=== PATIENT | male | born 1940 | race Caucasian/White ===

== ENCOUNTER 2018-02-25 15:48 | Inpatient (IN) | payer MEDICARE ==
[~2018-02-25] VITALS: Ht 188 cm; Wt 93.0 kg
[~2018-02-25 15:48] MED LIST: ACAR25TA2 PO; ALLO300T2 PO; ASPI-1012 PO; BUME2TAB18 PO; CALC650T PO; CLOP75TA32 PO; CYCL10 PO; GLIM2TAB3 PO; HYDR-4060 PO; ISOS30TA6 PO; MAGN420T PO; METO50TA9 PO; NITR0.4T50 SL; RANI150T7 PO; ROSU40 PO; TRAM50TA4 PO; VALS40TA4 PO
[2018-02-25 16:12] LABS: EOSINOPHILS % (AUTO) 1.5 % (0.0-8.0); HEMATOCRIT 45.5 % (42-54); LYMPHOCYTES % (AUTO) 19.1 % (21.0-51.0); MEAN CORPUSCULAR HEMOGLOBIN 31.9 pg (27.0-33.0); MEAN CORPUSCULAR HGB CONC 33.3 g/dL (32.0-36.0); MEAN CORPUSCULAR VOLUME 95.6 fL (79-99); MONOCYTES % (AUTO) 8.3 % (3.0-13.0); NEUTROPHILS % (AUTO) 70.1 % (40.0-77.0); PLATELET COUNT (AUTO) 123 K/uL (130-400); RED BLOOD CELL COUNT(AUTO) 4.76 MIL/uL (4.50-6.20); RED CELL DISTRIBUTION WIDTH 14.8 % (11.0-15.5); WHITE BLOOD COUNT (AUTO) 6.9 K/uL (4.8-10.8)
[2018-02-25 16:27] LABS: CREATININE 1.9 mg/dL (0.5-1.5); POTASSIUM 4.1 mmol/L (3.5-5.1)
[2018-02-25 16:32] LABS: ALBUMIN 3.3 g/dL (3.5-5.0); BILIRUBIN,TOTAL 0.7 mg/dL (0.2-1.0); TOTAL PROTEIN, SERUM 6.3 g/dL (6.0-8.3)
[2018-02-25 16:36] LABS: INR 1.05 (0.85-1.15); PARTIAL THROMBOPLASTIN TIME 28.3 SEC (26.3-35.5)
[2018-02-25 17:52] LABS: AMPHET/METH SCREEN,URINE NEGATIVE (NEGATIVE); BARBITURATE SCREEN, URINE NEGATIVE (NEGATIVE); BENZODIAZEPINES SCREEN,URINE NEGATIVE (NEGATIVE); CANNABINOID SCREEN,URINE NEGATIVE (NEGATIVE); COCAINE SCREEN,URINE NEGATIVE (NEGATIVE); OPIATE SCREEN,URINE NEGATIVE (NEGATIVE); PHENCYCLIDINE SCREEN,URINE NEGATIVE (NEGATIVE)
[2018-02-25] MEDS ORDERED: SODIUM CHLORIDE 0.9% 1000ML 1,000 ML IV ONE (18:14)
[2018-02-25] MEDS ORDERED: DEXTROSE 50%-WATER 50 ML DISP.SYRIN IV PRN (19:30)
[2018-02-25] MEDS ORDERED: GLUCAGON 1MG KIT 1 MG ML IM PRN (19:30)
[2018-02-25 20:10] LABS: HEMOGLOBIN A1C 6.3 % (4.0-6.0)
[2018-02-25] MEDS: INSULIN HUMULIN R 100 UNIT/ML 3ML SQ SCH (21:00)
[2018-02-25 21:03] VITALS: BP 113/76
[2018-02-25 23:05] VITALS: BP 101/67
[2018-02-25] MEDS: SODIUM CHLORIDE 0.9% 1000ML 1,000 ML IV SCH (23:21)
[2018-02-25] MEDS ORDERED: ONDANSETRON HCL MDV 20ML 2 MG/ML VIAL IV PRN (23:30)
[2018-02-25] MEDS ORDERED: ACETAMINOPHEN 325 MG TAB PO PRN (23:30)
[2018-02-26 00:22] LABS: APPEARANCE,URINE Clear (CLEAR); BILIRUBIN,URINE Negative (NEGATIVE); COLOR,URINE Yellow (YELLOW); GLUCOSE, URINE (UA) Negative (NEGATIVE); KETONES,URINE Negative (NEGATIVE); LEUKOCYTE ESTERASE ,URINE Negative (NEGATIVE); NITRATE,URINE Negative (NEGATIVE); OCCULT BLOOD,URINE Negative (NEGATIVE); PROTEIN,URINE Trace (NEGATIVE)
[2018-02-26 03:37] VITALS: BP 100/70
[2018-02-26 04:13] LABS: BASOPHILS % (AUTO) 0.7 % (0.0-5.0); EOSINOPHILS % (AUTO) 3.6 % (0.0-8.0); HEMATOCRIT 41.1 % (42-54); LYMPHOCYTES % (AUTO) 24.7 % (21.0-51.0); MEAN CORPUSCULAR HEMOGLOBIN 31.6 pg (27.0-33.0); MEAN CORPUSCULAR HGB CONC 33.1 g/dL (32.0-36.0); MEAN CORPUSCULAR VOLUME 95.5 fL (79-99); MONOCYTES % (AUTO) 10.4 % (3.0-13.0); NEUTROPHILS % (AUTO) 60.6 % (40.0-77.0); PLATELET COUNT (AUTO) 119 K/uL (130-400); RED CELL DISTRIBUTION WIDTH 14.8 % (11.0-15.5); WHITE BLOOD COUNT (AUTO) 5.8 K/uL (4.8-10.8)
[2018-02-26 04:33] LABS: BILIRUBIN,TOTAL 0.5 mg/dL (0.2-1.0); CREATININE 1.7 mg/dL (0.5-1.5); POTASSIUM 3.8 mmol/L (3.5-5.1); TOTAL PROTEIN, SERUM 5.6 g/dL (6.0-8.3)
[2018-02-26] MEDS: INSULIN HUMULIN R 100 UNIT/ML 3ML SQ SCH ×2 (06:34→21:00)
[2018-02-26 07:45] VITALS: BP 116/75
[2018-02-26] MEDS ORDERED: ASPIRIN 81MG TAB.CHEW PO SCH (09:00)
[2018-02-26] MEDS: SODIUM CHLORIDE 0.9% 1000ML 1,000 ML IV SCH ×4 (09:21→19:30)
[2018-02-26] MEDS ORDERED: MEMA10TA20 PO (10:28)
[2018-02-26] MEDS ORDERED: METF-444 PO (10:28)
[2018-02-26] MEDS ORDERED: SPIR25TA6 PO (10:28)
[2018-02-26] MEDS ORDERED: APIX5TAB PO (10:28)
[2018-02-26] MEDS: FAMOTIDINE/PF 20 MG/2 ML VIAL IV SCH (11:06)
[2018-02-26] MEDS: ENOXAPARIN SODIUM 30 MG/0.3 ML SQ SCH (11:07)
[2018-02-26 12:09] VITALS: BP 117/78
[2018-02-26 16:38] VITALS: BP 95/64
[2018-02-26 20:04] VITALS: BP 100/67
[2018-02-26] MEDS: MEMANTINE HCL 5 MG TABLET PO SCH (20:34)
[2018-02-26] MEDS: ATORVASTATIN CALCIUM 40 MG TABLET PO SCH (20:34)
[2018-02-26] MEDS: APIXABAN 5 MG TABLET PO SCH (20:34)
[2018-02-26] MEDS: ACETYLCYSTEINE 20% 200MG/ML 4ML VIAL PO SCH (21:00)
[2018-02-26 22:59] VITALS: BP 100/66
[2018-02-27 03:09] VITALS: BP 108/71
[2018-02-27 04:31] LABS: BASOPHILS % (AUTO) 0.6 % (0.0-5.0); EOSINOPHILS % (AUTO) 2.4 % (0.0-8.0); HEMATOCRIT 42.1 % (42-54); LYMPHOCYTES % (AUTO) 22.5 % (21.0-51.0); MEAN CORPUSCULAR HEMOGLOBIN 32.6 pg (27.0-33.0); MEAN CORPUSCULAR HGB CONC 34.5 g/dL (32.0-36.0); MEAN CORPUSCULAR VOLUME 94.7 fL (79-99); MONOCYTES % (AUTO) 10.3 % (3.0-13.0); NEUTROPHILS % (AUTO) 64.2 % (40.0-77.0); PLATELET COUNT (AUTO) 128 K/uL (130-400); RED BLOOD CELL COUNT(AUTO) 4.45 MIL/uL (4.50-6.20); RED CELL DISTRIBUTION WIDTH 14.5 % (11.0-15.5); WHITE BLOOD COUNT (AUTO) 5.7 K/uL (4.8-10.8)
[2018-02-27 04:49] LABS: CREATININE 1.5 mg/dL (0.5-1.5); POTASSIUM 3.7 mmol/L (3.5-5.1)
[2018-02-27] MEDS: SODIUM CHLORIDE 0.9% 1000ML 1,000 ML IV SCH ×3 (05:21→15:47)
[2018-02-27] MEDS: INSULIN HUMULIN R 100 UNIT/ML 3ML SQ SCH ×4 (05:55→20:44)
[2018-02-27 08:15] VITALS: BP 126/79
[2018-02-27] MEDS ORDERED: IOHEXOL-350 75 ML VIAL IV ONE (11:22)
[2018-02-27 11:56] VITALS: BP 126/80
[2018-02-27] MEDS: FAMOTIDINE/PF 20 MG/2 ML VIAL IV SCH (15:37)
[2018-02-27] MEDS: APIXABAN 5 MG TABLET PO SCH ×2 (15:38→22:20)
[2018-02-27] MEDS: ACETYLCYSTEINE 20% 200MG/ML 4ML VIAL PO SCH ×2 (15:39→22:20)
[2018-02-27] MEDS: MEMANTINE HCL 5 MG TABLET PO SCH ×2 (15:39→22:20)
[2018-02-27] MEDS: CLOPIDOGREL BISULFATE 75 MG TAB PO SCH (15:39)
[2018-02-27] MEDS: ENOXAPARIN SODIUM 30 MG/0.3 ML SQ SCH (15:42)
[2018-02-27 16:00] VITALS: BP 127/87
[2018-02-27 19:42] VITALS: BP 103/58
[2018-02-27] MEDS: ATORVASTATIN CALCIUM 40 MG TABLET PO SCH (22:20)
[2018-02-27 23:30] VITALS: BP 120/72
[2018-02-27 23:53] LABS: CREATININE,URINE RANDOM 75 mg/dL (30-135); SODIUM,URINE RANDOM 85 mmol/l (40-220)
[2018-02-28] MEDS: SODIUM CHLORIDE 0.9% 1000ML 1,000 ML IV SCH ×2 (01:30→10:33)
[2018-02-28 03:38] VITALS: BP 115/67
[2018-02-28 04:01] LABS: BASOPHILS % (AUTO) 0.7 % (0.0-5.0); EOSINOPHILS % (AUTO) 1.8 % (0.0-8.0); HEMATOCRIT 43.4 % (42-54); LYMPHOCYTES % (AUTO) 22.4 % (21.0-51.0); MEAN CORPUSCULAR HEMOGLOBIN 32.3 pg (27.0-33.0); MEAN CORPUSCULAR HGB CONC 33.8 g/dL (32.0-36.0); MEAN CORPUSCULAR VOLUME 95.4 fL (79-99); NEUTROPHILS % (AUTO) 65.1 % (40.0-77.0); PLATELET COUNT (AUTO) 104 K/uL (130-400); RED BLOOD CELL COUNT(AUTO) 4.55 MIL/uL (4.50-6.20); RED CELL DISTRIBUTION WIDTH 14.4 % (11.0-15.5); WHITE BLOOD COUNT (AUTO) 5.7 K/uL (4.8-10.8)
[2018-02-28 04:07] LABS: CREATININE 1.4 mg/dL (0.5-1.5); POTASSIUM 3.7 mmol/L (3.5-5.1)
[2018-02-28] MEDS: INSULIN HUMULIN R 100 UNIT/ML 3ML SQ SCH ×2 (05:25→11:30)
[2018-02-28 08:00] VITALS: BP 110/66
[2018-02-28] MEDS: FAMOTIDINE/PF 20 MG/2 ML VIAL IV SCH (10:33)
[2018-02-28] MEDS: ENOXAPARIN SODIUM 30 MG/0.3 ML SQ SCH (10:33)
[2018-02-28] MEDS: CLOPIDOGREL BISULFATE 75 MG TAB PO SCH (10:33)
[2018-02-28] MEDS: MEMANTINE HCL 5 MG TABLET PO SCH (10:33)
[2018-02-28] MEDS: ACETYLCYSTEINE 20% 200MG/ML 4ML VIAL PO SCH (10:33)
[2018-02-28] MEDS: APIXABAN 5 MG TABLET PO SCH (10:33)
[2018-02-28 11:50] VITALS: BP 138/80
== END 2018-02-28 15:55 | disposition home or self-care (01) | DRG 683 ==
LOC: EDH 15:48 → EDHIP 18:35 → 2AH 20:48
PROVIDERS: ADMIT Internal Medicine; ATTEND Internal Medicine
DX: N17.9 Acute kidney failure, unspecified (principal); G45.9 Transient cerebral ischemic attack, unspecified; G93.49 Other encephalopathy; E78.5 Hyperlipidemia, unspecified; E11.9 Type 2 diabetes mellitus without complications; I25.10 Atherosclerotic heart disease of native coronary artery without angina pectoris; F03.90 Unspecified dementia, unspecified severity, without behavioral disturbance, psychotic disturbance, mood disturbance, and anxiety; I25.5 Ischemic cardiomyopathy; I48.91 Unspecified atrial fibrillation; I50.9 Heart failure, unspecified; I11.0 Hypertensive heart disease with heart failure; Z95.1 Presence of aortocoronary bypass graft; Z79.02 Long term (current) use of antithrombotics/antiplatelets; Z79.01 Long term (current) use of anticoagulants; Z82.49 Family history of ischemic heart disease and other diseases of the circulatory system; Z86.711 Personal history of pulmonary embolism; Z86.718 Personal history of other venous thrombosis and embolism; Z95.0 Presence of cardiac pacemaker
CPT/HCPCS: 36415; 70450; 70496; 70498; 80048; 80053; 80061; 80305; 81003; 82570; 82948; 83036; 83735; 83935; 84300; 84484; 85025; 85610; 85730; 92522; 92610; 93005; 93306; 99291; J1650; J3490; J7030; J7070; J7608; Q9967

== ENCOUNTER → 2018-04-26 | Outpatient (CLI) | payer MEDICARE ==
[~2018-04-26] VITALS: Ht 188 cm; Wt 90.7 kg
[~2018-04-26] MED LIST changes: -ACAR25TA2 PO; +APIX5TAB PO; -ASPI-1012 PO; -BUME2TAB18 PO; -CYCL10 PO; -GLIM2TAB3 PO; -HYDR-4060 PO; +MEMA10TA20 PO; +REGADENOSON 0.4 MG/5 ML PF SYG IVP SCH; +SPIR25TA6 PO; -TRAM50TA4 PO
== END | disposition home or self-care (01) ==
LOC: SHCH 08:13
PROVIDERS: ATTEND Internal Medicine Cardiovascular Disease
DX: I25.10 Atherosclerotic heart disease of native coronary artery without angina pectoris (principal)
CPT/HCPCS: 78452; 93017; 96374; A9500 ×2; J2785